=== PATIENT | female | born 2000 | race Hispanic/Latino ===

== ENCOUNTER 2024-11-07 03:22 | Inpatient (IN) | payer MEDICAID, SELFPAY ==
[2024-11-07] VITALS (188 sets, daily range): BP systolic 82–144; BP diastolic 51–87; PULSE 62–100; RESP 18; TEMP 36.7–37.2; O2SAT 69–100; BMI 24.4
[2024-11-07 03:49] LABS: Basophils % (Auto) 0 % (0-2.5); Eosinophils % (Auto) 0 % (0-10); Hemoglobin 12.3 g/dL (12.0-16.0); Immature Granulocytes % (Auto) 0 % (0-0); Immature Granulocytes Auto 0.05 Thou/mm3 (0.00-0.00); Lymphocytes # (Auto) 2.2 Thou/mm3 (1.0-4.8); Lymphocytes % (Auto) 20 % (10-50); Mean Corpuscular HGB Conc 35.1 g/dl (31.0-37.0); Mean Corpuscular Hemoglobin 30.6 pg (25.0-35.0); Mean Corpuscular Volume 87 fL (80-100); Monocytes # (Auto) 0.6 Thou/mm3 (0.0-0.8); Monocytes % (Auto) 5 % (0-12); Neutrophils # (Auto) 8.3 Thou/mm3 (1.8-7.7); Neutrophils % (Auto) 74 % (37-80); Nucleated Red Blood Cell % 0 /100 WBC (0); Platelet Count 339 Thou/mm3 (140-440); RDW Standard Deviation 40.1 fL (36.4-46.3); Red Blood Count 4.02 Miln/mm3 (4.00-5.20); White Blood Count 11.2 Thou/mm3 (3.6-11.0)
[2024-11-07] MEDS: RINGERS LACTATED 1000 ML 1,000 ML 100 ML IV (03:58)
--- NOTE | 2024-11-07 04:30 | PD.LDHP ---
Documentation for date of: 11/07/24 OB Labor/Induct. HPI History of Present Illness Chief complaint: 24 y/o 39w 3d presents to L&D in labor at 5cm : 2 Para: 1 Term pregnancies: 1 pregnancies: 0 Living children: 1 History of Abortions: Spontaneous and Elective: 0 History of Vaginal deliveries: 1 History of sections: No History of : No NAOMIE: 11/11/24 Gestational Age (weeks): 39 Gestational Age (days): 3 History of present illness: 24 y/o 39w 3d presents to L&D in labor at 5cm vertex orlin 2-4 minutes, membranes intact. GBS is neg. Pt's has been uncomplicated. Pt has a hx of nvdx1, no complications. EFW 3500g History of Present Dating criteria: based on LMP only Adequate Care: Yes Ultrasounds: normal 1st trimester US and normal mid trimester US Obstetrical complications: none Labs Maternal Blood Type: A Pos Labs: Positive: Rubella Titre, Negative: RPR, Hepatitis B, HIV, Chlamydia, Gonorrhea and Group Beta Strep and Unknown: Herpes Type 1, Herpes Type 2 and Covid-19 Review of Systems Review of Systems Systems Reviewed: All systems reviewed, normal except as documented Past Medical History Surgical History SURGICAL: Negative Section Meds Home Medications and Allergies Home Medications ?Medication ?Instructions ?Recorded ?Confirmed ?Type [id number] 1 mg tab PO 11/07/24 History tablet Allergies Allergy/AdvReac Type Severity Reaction Status Date / Time No Known Allergies Allergy Verified 11/07/24 06:07 OB Exam Physical Exam Vital signs: Temp Pulse BP Pulse Ox 98.1 F 90 103/68 100 11/07/24 06:23 11/07/24 08:48 11/07/24 08:48 11/07/24 08:49 Constitutional Constitutional: mild distress (Secondary to painful contractions) Routine HEENT Exam Head: Present normocephalic and atraumatic Eye: Present EOMI, PERRL and normal accommodation ENT: Present mucous membranes moist Routine Neck Exam Neck: Present full ROM Routine Respiratory Exam Respiratory: Absent respiratory distress Routine Cardiovascular Exam Cardiovascular: Present RRR Routine Abdominal Exam Abdominal: Present soft and normoactive bowel sounds Routine Exam External: Present normal urethra appearance; Absent lesions Detailed Labor and Delivery Exam Dilation (cm): 5 Effacement (%): 80 Cervix position: posterior station: -2 Consistency: soft Presentation: Vertex Membranes: intact Baseline heart rate: 130 monitor decelerations: None senior living variability: Moderate (11-25) Contraction frequency (min): 2-4 Routine Extremities Exam Extremities: Present full ROM Routine Back/Spine/Pelvis Exam Back/Spine: Present full ROM Routine Skin Exam Skin: Present intact, dry and warm Routine Neurological Exam Neurological: Present alert, oriented X3 and CN II-XII intact Routine Psychiatric Exam Psychiatric: Present normal affect and normal thought process OB Results Labs 11/07/24 03:38 Labs: Short CBC 11/07/24 Range/Units 03:38 WBC 11.2 H (3.6-11.0) Thou/mm3 Hgb 12.3 (12.0-16.0) g/dL Hct 35.0 L (36.0-46.0) % Plt Count 339 (140-440) Thou/mm3 OB Assessment & Plan Assessment and Plan (1) Normal labor: Status: Acute (2) with 39 completed weeks gestation: Status: Acute Additional Plan Induction method: none Plan: anticipate NVD and consult MD isbell Additional Plan Comment: Routine admit orders Consult anesthesia for an epidural Continuous EFM
[2024-11-07 04:40] LABS: Syphilis Nonreactive (Nonreactive)
[2024-11-07] MEDS: ONDANSETRON INJ 2 MG/ML INJ 2 ML 4 MG IV ×2 (05:00→13:44)
[2024-11-07] MEDS: ACETAMINOPHEN IVPB 1,000 MG/100 ML VIAL 250 MG IV (05:05)
--- NOTE | 2024-11-07 09:07 | PD.LDPN ---
Documentation for date of: 11/07/24 OB Labor Progress Note Pain Control Pain control: epidural Pelvic Exam Dilation (cm): 6 Effacement (%): 90 station: 0 Amniotic membrane status: Bulging Contractions Monitor mode: External Contraction frequency: 3-5 Contraction duration: 40-60 Contraction phase: Contraction Contraction intensity: Moderate Status status: Category l Assessment and Plan Assessment: active labor Plan OB labor note: continuous present management Comments: Pt is progressing well Anticipate
[2024-11-07] MEDS: MINERAL OIL 30 ML UDC TOP (11:43)
[2024-11-07] MEDS: OXYTOCIN in NS 20 units 20 UNIT/1,000 ML BAG 125 UNIT IV (11:54)
[2024-11-07] MEDS: TRANEXAMIC ACID 1,000 MG IVPB 1,000 MG/100 ML BAG 200 MG IV ×2 (12:30→13:00)
--- NOTE | 2024-11-07 12:30 | OBDSUM_ITS ---
Data (Arana) Data Hx Section: No Maternal Blood Type: A Pos Rubella Titre: Positive RPR: Non-reactive Labs: Negative: RPR, Hepatitis B, HIV, Chlamydia, Gonorrhea and Group Beta Strep and Unknown: Herpes Type 1 and Herpes Type 2 : 2 Para: 1 Term: 1 : 0 Livin : 0 Delivery Data (Arana) Labor Data Stimulated/Augmented: No Induction: No ROM Date: 11/07/24 ROM Time: 11:40 Rupture Type: AROM Amniotic Fluid: Clear Delivery Data EDC: 11/11/24 EDC calculated by:: LMP/early US confirmation Labor Onset Stage 1 Date: 11/07/24 Labor Onset Stage 1 Time: 03:47 Labor Onset Stage 2 Date: 11/07/24 Labor Onset Stage 2 Time: 11:43 Delivery Date: 11/07/24 Delivery Time: 11:49 Gestational age (weeks): 39 Gestational age (days): 3 Placenta Delivery Date: 11/07/24 Placenta Delivery Time: 11:54 Delivered by: Deanna Brownlee Delivery nurse: Bhavana Barcenas Supervisor Component Assembler at delivery: No Support person(s) at delivery: FOB Other staff at delivery: Nursery Nurse Other staff at delivery: Kori Tate Delivery Method Delivery: Vaginal Delivery Type: Spontaneous Presentation: Vertex Position: FRANKIE Anesthesia Type Primary Anesthesia: Epidural Secondary Anesthesia: None Delivery Room Medications Other Intrapartum Medications: Yes Post Delivery Medications N/A: No Placenta Placenta Delivery: Spontaneous Placenta Cultures Obtained: No Placenta Sent for Examination: No Cord Sample: Cord Blood Obtained Episiotomy Episiotomy: None Lacerations #1: Perineal: 2nd degree Perineal repair Sutures used for repair: 3.0 Vicryl (CT x2 ) EBL Estimated blood loss (ml): 350 Umbilical Cord Umbilical Vessels: 3 Nuchal Cord: None Body Cord: None Additional Procedures Patient was complete. AROM performed at bedside. Clear fluids noted. Patient pushed for about 6 minutes and had an of a viable male . Infant's anterior shoulder delivered with gentle downward traction subsequent delivery the posterior shoulder and the body without complications. placed on mother's abdomen. Vigorous cry upon delivery. Cord was clamped. Cut by FOB. Cord blood obtained. Three-vessel cord noted. Placenta expelled spontaneously and intact. Patient sustained a second-degree perineal laceration. Repaired using a 3-[address] suture x 2. Excellent hemostasis achieved after vigorous fundal massage and removal of clots from the posterior fornix. EBL 350. Sponge and needle count correct. Mother and baby stable, skin to skin and bonding in LDR. Data (Arana) Data Infant Gender: Male Weight Grams: 3440 1 Minute Total: 8 5 Minute Total: 9
[2024-11-07] MEDS: IBUPROFEN TAB 400 MG TABLET 800 MG PO (17:13)
[2024-11-07 18:18] LABS: Basophils % (Auto) 0 % (0-2.5); Eosinophils % (Auto) 0 % (0-10); Hematocrit 29.8 % (36.0-46.0); Hemoglobin 10.3 g/dL (12.0-16.0); Immature Granulocytes % (Auto) 1 % (0-0); Immature Granulocytes Auto 0.06 Thou/mm3 (0.00-0.00); Lymphocytes % (Auto) 15 % (10-50); Mean Corpuscular HGB Conc 34.6 g/dl (31.0-37.0); Mean Corpuscular Hemoglobin 30.5 pg (25.0-35.0); Mean Corpuscular Volume 88 fL (80-100); Monocytes # (Auto) 0.7 Thou/mm3 (0.0-0.8); Monocytes % (Auto) 6 % (0-12); Neutrophils # (Auto) 10.5 Thou/mm3 (1.8-7.7); Neutrophils % (Auto) 79 % (37-80); Nucleated Red Blood Cell % 0 /100 WBC (0); Platelet Count 265 Thou/mm3 (140-440); RDW Standard Deviation 41.4 fL (36.4-46.3); Red Blood Count 3.38 Miln/mm3 (4.00-5.20); White Blood Count 13.3 Thou/mm3 (3.6-11.0)
[2024-11-08 00:57] VITALS: BP 94/55; PULSE 86; RESP 16; TEMP 36.8; O2SAT 97
[2024-11-08] MEDS: IBUPROFEN TAB 400 MG TABLET 800 MG PO (04:35)
[2024-11-08 05:15] VITALS: BP 103/66; PULSE 84; RESP 16; TEMP 36.8; O2SAT 96
--- NOTE | 2024-11-08 07:21 | PD.LDDS ---
DS: Providers Provider Date of admission: 11/07/24 03:32 Primary care physician: Sai Ornelas MD Admitting Provider: Juventino Garcia MD Attending Provider on Admission: Deanna Brownlee CNM Attending Provider on DC: Deanna Brownlee CNM Discharging Provider: Deanna Brownlee CNM Anticipated date of discharge: 11/08/24 DS: Diagnosis Discharge Diagnosis (1) Normal spontaneous vaginal delivery: Status: Acute (2) Encounter for care of lactating mother: Status: Acute (3) with 39 completed weeks gestation: Status: Acute (4) Normal labor: Status: Acute Problem List Completed Was Problem List Reviewed/Reconciled?: Yes Summary/Hosp Course Brief History: 24 y/o 39w 3d presents to L&D in labor at 5cm vertex orlin 2-4 minutes, membranes intact. GBS is neg. Pt's has been uncomplicated. Pt has a hx of nvdx1, no complications. EFW 3500g 11/07/24: Patient was complete. AROM performed at bedside. Clear fluids noted. Patient pushed for about 6 minutes and had an of a viable male . Infant's anterior shoulder delivered with gentle downward traction subsequent delivery the posterior shoulder and the body without complications. Infant placed on mother's abdomen. Vigorous cry upon delivery. Cord was clamped. Cut by FOB. Cord blood obtained. Three-vessel cord noted. Placenta expelled spontaneously and intact. Patient sustained a second-degree perineal laceration. Repaired using a 3-[address] suture x 2. Excellent hemostasis achieved after vigorous fundal massage and removal of clots from the posterior fornix. EBL 350. Sponge and needle count correct. Mother and baby stable, skin to skin and bonding in LDR. 11/08/24: day 1. Patient is stable and afebrile doing well. Denies dizziness shortness of breath. Patient reports bleeding is minimum. He is eager to go home. Patient is breast-feeding and bottlefeeding. Uterus is nontender fundus firm minimal lochia. Discharge instructions given. Patient to follow-up with Deanna Brownlee CNM in 3 weeks Peripartum Data Delivery Method: Normal Vaginal Delivery Episiotomy Description: None Laceration Description: yes and see Delivery Summary complications: none [place] 1: Gender: Male Disposition of : home Status at Discharge Cognitive/behavioral status at discharge: Alert and oriented x3 Functional status at discharge: independent ambulation Overall status at discharge: patient is progressing back to baseline Time Spent with Patient Time attestation: Total time spent providing and/or coordinating discharge services: Time spent: Greater than 30 minutes Exam Vital Signs Temp Pulse Resp BP Pulse Ox 98.4 F 68 18 111/65 100 11/07/24 07:08 11/07/24 12:18 11/07/24 07:08 11/07/24 12:18 11/07/24 12:19 Constitutional Constitutional: no acute distress Routine HEENT Exam Head: Present normocephalic and atraumatic Eye: Present EOMI, PERRL and normal accommodation ENT: Present mucous membranes moist Routine Neck Exam Neck: Present supple, full ROM and trachea midline Routine Respiratory Exam Respiratory: Present chest non-tender, lungs clear, normal breath sounds and no resp distress Routine Cardiovascular Exam Cardiovascular: Present RRR Routine Abdominal Exam Abdominal: Present soft and normoactive bowel sounds; Absent tenderness or distended Comments: Uterus non-tender Fundus firm Routine Exam External: Present normal urethra appearance and lacerations (healing); Absent lesions Routine Extremities Exam Extremities: Present full ROM Routine Back/Spine/Pelvis Exam Back/Spine: Present full ROM Routine Skin Exam Skin: Present intact, dry and warm Routine Neurological Exam Neurological: Present alert, oriented X3 and CN II-XII intact Routine Psychiatric Exam Psychiatric: Present normal affect and normal thought process Discharge Plan Plan Patient Disposition: HOME (Self Care) Patient condition on transfer: Stable Prescriptions/Referrals Prescriptions/Med Rec: New ibuprofen 800 mg tablet 800 mg PO Q6H MDD 4 PRN (Reason: pain) Qty: 120 0RF docusate sodium [Colace] 100 mg capsule 100 mg PO BID Qty: 60 0RF lanolin 50 % ointment 1 applic topical TID PRN (Reason: skin irritation) Qty: 15 0RF Continued [id number] 1 mg Tablet PO Referrals: Sai Ornelas MD [Primary Care Provider] - Patient/Caregiver Discharge Instructions Meds to Beds: No Discharge Activity: activity as tolerated Other Discharge Activity Instructions:: Follow-up with Deanna Brownlee CNM Education Materials: After a Vaginal , After Delivery [place] Concerns, : Caring for Yourself Print Language: Polish Stand Alone Forms: Kristen Award Info., Patient Portal Info Letter Discharge Order Discharge Orders: Discharge (Routine); Ordered 11/08/24 Ordered By: Deanna Brownlee Planned Discharge Date 11/08/24
[2024-11-08 07:25] VITALS: BP 107/70; PULSE 77; RESP 18; TEMP 36.1; O2SAT 98
[2024-11-08] MEDS: DOCUSATE SOD 100 MG CAPSULE PO (07:46)
[2024-11-08 11:37] VITALS: BP 106/69; PULSE 77; RESP 14; TEMP 36.2; O2SAT 98
--- NOTE | 2024-11-08 14:26 | PC.NURSE ---
Patient discharged home with spouse. Vitals WNL. Patient given discharge education including reasons to return for self and . Patient instructed to follow up with tax consultant at next scheduled appt. Patient verbalizes understanding, all questions answered and encouraged.
== END 2024-11-08 14:10 | disposition home or self-care (01) | DRG 560 ==
LOC: S4SX 12:25 → S4NX 15:24
PROVIDERS: Admitting Provider Obstetrics & Gynecology; PCP Family Medicine; Visit Provider Nurse Practitioner Women's Health
DX: O70.1 Second degree perineal laceration during delivery (principal); Z37.0 Single live birth; Z3A.39 39 weeks gestation of pregnancy
CPT/HCPCS: 36415; 59409; 85025; 86780; 86850; 86900; 86901; J0131; J2405; J2590; J2795; J3010; J3490; J7120; A9270